=== PATIENT | female | born 1950 | race Caucasian/White ===

== ENCOUNTER → 2023-07-25 06:34 | Day surgery (SDC) | payer MEDICARE, SELFPAY | LOC: GI 06:34 | PROVIDERS: ATTENDING PHYSICIAN Internal Medicine Gastroenterology | DX: D12.0 Benign neoplasm of cecum (principal); D12.3 Benign neoplasm of transverse colon; D12.5 Benign neoplasm of sigmoid colon; K63.89 Other specified diseases of intestine; Z86.010 Personal history of colon polyps | CPT/HCPCS: 45385; 45380; 45381; 88305 ==

== ENCOUNTER → 2023-10-23 11:17 | Outpatient (REF) | payer MEDICARE, SELFPAY | LOC: RAD 11:17 | PROVIDERS: ATTENDING PHYSICIAN Internal Medicine Cardiovascular Disease; FAMILY PHYSICIAN Family Medicine | DX: I77.9 Disorder of arteries and arterioles, unspecified (principal); I65.21 Occlusion and stenosis of right carotid artery | CPT/HCPCS: 93880 ==

== ENCOUNTER → 2023-11-05 11:54 | Outpatient (REF) | payer MEDICARE, SELFPAY ==
[2023-11-05 14:46] LABS: Blood Urea Nitrogen 11 mg/dl (7-17); Calcium 9.6 mg/dl (8.4-10.2); Carbon Dioxide 30 mmol/L (22-30); Chloride 101 mmol/L (98-107); Glucose 102 mg/dl (70-99); Potassium 3.8 mmol/L (3.5-5.1); Sodium 140 mmol/L (135-145); eGFR > 60.00
== END ==
LOC: REG 11:54
PROVIDERS: ATTENDING PHYSICIAN Surgery Vascular Surgery; FAMILY PHYSICIAN Family Medicine
DX: I65.23 Occlusion and stenosis of bilateral carotid arteries (principal)
CPT/HCPCS: 36415; 80048

== ENCOUNTER → 2023-11-13 10:13 | Outpatient (REF) | payer MEDICARE, SELFPAY | LOC: RAD 10:13 | PROVIDERS: ATTENDING PHYSICIAN Surgery Vascular Surgery; FAMILY PHYSICIAN Family Medicine | DX: I65.23 Occlusion and stenosis of bilateral carotid arteries (principal) | CPT/HCPCS: 70496; 70498; Q9967 ==

== ENCOUNTER → 2023-11-15 12:32 | Outpatient (REF) | payer MEDICARE, SELFPAY | LOC: RAD 12:32 | PROVIDERS: ATTENDING PHYSICIAN Surgery Vascular Surgery; FAMILY PHYSICIAN Family Medicine | DX: Z13.6 Encounter for screening for cardiovascular disorders (principal) | CPT/HCPCS: 76770 ==

== ENCOUNTER → 2023-12-09 07:26 | Outpatient (REF) | payer MEDICARE, SELFPAY ==
[2023-12-09] MEDS: LEXISCAN 0.4 MG IV (09:25)
== END ==
LOC: RCS 07:26
PROVIDERS: ATTENDING PHYSICIAN Nuclear Medicine Nuclear Cardiology; FAMILY PHYSICIAN Family Medicine
DX: Z01.810 Encounter for preprocedural cardiovascular examination (principal); R06.02 Shortness of breath; I35.0 Nonrheumatic aortic (valve) stenosis
CPT/HCPCS: 78452; 93017; A9500; J2785

== ENCOUNTER 2023-12-12 06:15 | Inpatient (IN) | payer MEDICARE, SELFPAY ==
[2023-12-11 09:45] VITALS: BMI 35.4
[2023-12-11 10:54] LABS: % Basophils 0.6 % (0-2); % Eosinophils 0.7 % (0-6); % Immature Granulocytes 0.2 % (0-0.5); % Lymphocytes 15.5 % (20.5-51.1); Absolute Lymphocytes 0.8 10^3/uL (1.2-3.4); Absolute Monocytes 0.4 10^3/uL (0.1-0.6); Absolute Neutrophils 4.1 10^3/uL (1.4-6.5); Hematocrit 38.7 % (37.0-47.0); Mean Corp Hgb Conc. 33.6 g/dL (33.0-37.0); Mean Corpuscular Hgb 30.8 pg (27.0-31.0); Mean Corpuscular Volume 91.7 fL (81.0-99.0); Mean Platelet Volume 10.3 fL (7.4-10.4); Nucleated Red Blood Cells % 0 %; Platelet Count 188 10^3/uL (130-400); Red Blood Cell Count 4.22 10^6/uL (4.20-5.40); Red Cell Dist. Width 13.7 % (11.5-14.5); White Blood Cell Count 5.4 10^3/uL (4.8-10.8)
[2023-12-11 11:10] LABS: APTT 27.2 Sec (23.4-35.0); INR 0.99; PT 13.1 Sec (11.4-14.6)
[2023-12-11 11:47] LABS: Blood Urea Nitrogen 12 mg/dl (7-17); Calcium 9.6 mg/dl (8.4-10.2); Carbon Dioxide 27 mmol/L (22-30); Chloride 100 mmol/L (98-107); Estimated Creatinine Clearance 105 ml/min; Glucose 114 mg/dl (70-99); Sodium 138 mmol/L (135-145); eGFR > 60.00
[2023-12-12] VITALS (24 sets, daily range): BP systolic 97–192; BP diastolic 45–78; BMI 35.5
[2023-12-12] MEDS: BACTROBAN NASAL 1 GRAM NASAL (06:52)
[2023-12-12] MEDS: PERIDEX 0.12% ORAL RINSE 15 ML PO (06:53)
--- NOTE | 2023-12-12 07:07 | W.SUR.PREOP ---
Pre-Operative Surgical Note
-
I have examined this patient prior to the performance of the scheduled procedure.
The patient's condition is unchanged from the time of the current History and
Physical and the patient is able to undergo the scheduled procedure.
--- NOTE | 2023-12-12 09:08 | W.SUR.POST ---
Surgical Immediate Post Op
Note
Pre Op Diagnosis: Carotid stenosis
Post Op Diagnosis: Carotid stenosis
Procedure Performed: Left carotid endarterectomy with bovine pericardium patch angioplasty under EEG monitoring
Primary Surgeon: Cali Nguyen MD
leasing assistant: LUBNA Hernandez
Anesthesia: GETA
Estimated Blood Loss: 10 mL
Fluids: See anesthesia flowsheet
Drains/Shunts: N/A
Specimens/Cultures: Left carotid plaque
Doppler/Duplex/Angio (Y/N): Y
Complications: None
Operative Findings: Successful removal of left carotid plaque, upon waking from anesthesia patient can move all extremities spontaneously and to command, midline tongue
--- NOTE | 2023-12-12 09:09 | OR.RPT ---
Operative Report
Operative Report
PROCEDURE DATE: 12/12/2023
Preoperative diagnosis: Critical asymptomatic left carotid artery stenosis.
Postoperative diagnosis: Same
Procedure: Left carotid endarterectomy with bovine pericardial patch angioplasty and intraoperative EEG/SSEP monitoring.
Surgeon: Patrick
Ladler: SELINA Odell, required for all aspects of procedure including assistance with traction/countertraction, following of suture line, assistance with closure.
Complications: None
Anesthesia: General
Indications for procedure:
Severe left internal carotid artery stenosis, asymptomatic. Risk/benefits/alternatives of revascularization were all fully discussed. Patient understood and wished to proceed.
Description of procedure:
Patient was identified brought to the operating room placed on the table in supine position. After the adequate administration of anesthesia and perioperative antibiotics she was prepped and draped in the standard surgical fashion. A standard
preoperative timeout was undertaken and everybody was in agreement the plan. A standard longitudinal incision was made in the left neck that was carried through the skin subcutaneous tissue. Using the electrocautery dissection was carried through
the platysma muscle layer and then alongside the anterior medial border of the sternocleidomastoid muscle. Then using a combination of sharp dissection with the Metzenbaum scissors and electrocautery I dissected along the anterior medial border of
the internal jugular vein. I then deepened my retraction. The common carotid artery was identified and carefully dissected away from the surrounding structures take great care to avoid any injury to the structures. A vessel loop was passed around
it which was double looped, but not yet tightened. Note the vagus nerve was protected from harm's way. It was somewhat anterior and lateral, but was gently dissected off the common carotid artery laterally without grasping the nerve itself. I
then continued my dissection up the common carotid artery to the bulb staying only on the anterior surface of the carotid artery. The common facial vein branch was ligated between silk ties and then divided. Note, the common facial vein was noted
to be relatively cephalad (as noted on CT scan) overlying the internal carotid artery rather than the bifurcation. Then I carried the dissection up to the internal carotid artery and then to the distal internal carotid artery. I identified where
it was soft and carefully circumferentially dissected the internal carotid artery with minimal mobilization and passed a vessel loop around it. Note the hypoglossal nerve was visualized further cephalad and was preserved from harm's way. The
patient was given an appropriate dose of heparin 10,000 units. Next I dissected the anterior surface of the external carotid artery and superior thyroid branches. These were then carefully circumferentially dissected with minimal mobilization and
vessel loops passed around these which were double looped but not yet tightened. After 3 minutes of heparin circulation time and confirmation of optimization of the blood pressure with my anesthesiology colleagues, I clamped the distal internal
carotid artery where it was soft. There was no immediate EEG or SSEP changes. After 1 minute of test clamp time there was no changes noted. Therefore at this point, the vessel loops on the external carotid artery and superior thyroid branches
were tightened and the common carotid artery was clamped where it was soft proximally. An arteriotomy was made on the common carotid artery with an 11 blade and extended using a Reilly scissor. I extended the arteriotomy onto the mid to distal
internal carotid artery. There was mixed consistency plaque, with hard and calcified plaque more exteriorly and slightly softer more internally, but majority was somewhat firmer plaque. However, it resulted in a severe stenosis near occlusive of
the artery. A [place] was then used to endarterectomized the plaque. An endarterectomy plane was created, and the plaque was then endarterectomized. Distally I feathered the plaque out to a nice clean endpoint in the distal internal carotid artery.
Next I endarterectomized the intima back to normal intima in the common carotid artery, and the intima was cut flush there. I then grasped the plaque and everted plaque out of the origin of the external carotid artery. The plaque was then sent
off for specimen. The origin of the external carotid artery was carefully visualized and any fine debris were removed with fine forceps. Proximal and distal endpoints were then carefully inspected. Any fine debris was removed with fine forceps,
and the intima was noted to be nicely adherent proximally distally. Next any fine debris were removed throughout the endarterectomy bed with fine forceps. I then flushed heparinized saline. I was very satisfied. Then, I used a bovine pericardial
patch to sew a patch angioplasty with a running 6-0 Prolene suture. Prior to completing and tying down my suture line, I backbled sequentially each branch and reclamped each branch prior to unclamping the next branch. I then irrigated with
heparinized saline. Then I completed and tied down my suture line. We then restored flow in the common carotid and external carotid arteries. Finally, we released flow in the internal carotid artery. There was excellent pulsatile flow in all 3
vessels. There was an excellent Doppler signal in the internal carotid artery distal to the patch with a good normal low resistance Doppler signal. There was a good Doppler signal in the external carotid artery as well. 6-0 Prolene upurkl-so-ixwip
sutures were placed along any bleeding points along the suture line. Protamine was given to reverse the heparin. Hemostasis was completely achieved. We then irrigated and confirmed full hemostasis. We then closed in layers with 2-0 Vicryl layer
to reapproximate the sternocleidomastoid muscle, followed by 3-0 Vicryl platysma muscle running layer, followed by 4 Monocryl subcuticular stitch. Dermabond was applied. The patient tolerated procedure well. She awoke moving all extremities to
command with tongue in the midline.
[2023-12-12 10:14] LABS: Hemoglobin 11.4 g/dL (12.0-16.0); Mean Corp Hgb Conc. 33.5 g/dL (33.0-37.0); Mean Corpuscular Hgb 29.8 pg (27.0-31.0); Mean Corpuscular Volume 88.8 fL (81.0-99.0); Mean Platelet Volume 10.2 fL (7.4-10.4); Platelet Count 166 10^3/uL (130-400); Red Blood Cell Count 3.83 10^6/uL (4.20-5.40); Red Cell Dist. Width 13.7 % (11.5-14.5); White Blood Cell Count 8.6 10^3/uL (4.8-10.8)
[2023-12-12] MEDS: NSS 1000 IV ×2 (10:15→22:58)
[2023-12-12] MEDS: NEO-SYNEPHRINE 250 IV (10:16)
[2023-12-12 10:36] LABS: INR 1.05; PT 13.7 Sec (11.4-14.6)
[2023-12-12 10:37] LABS: APTT 27.8 Sec (23.4-35.0)
--- NOTE | 2023-12-12 11:00 | PTCARENOTE ---
Received pt. from PACU into rm [id number]. Pt. AAOx3, c/o of slight discomfort at surgical site; ice pack applied, denies pain meds. Neuro checks completed per orders- see flow sheet. SB w 1st degree AVB. SpO2 95% on 2LNC. +BS, abd soft/round/obese.
C/O int nausea, tolerating ice chips. Cont b/b. Bedrest POD 0. L neck incision approximated/closed w surgical glue. NSS @ 80mL/hr infusing via #20 R AC. # 20 L AC patent, dressing c/d/i. R rad A-line transduced, monitored, and calibrated; all
ports patent and secured; correlated w cuff pressures. SBP's elevated into 150's, brea gtt off and SBP's maintaining w in goal range. Family @ bedside, updated. Pt. instructed on how to report care concerns and call nugent w in reach.
--- NOTE | 2023-12-12 11:13 | CON.INTV ---
Consultation
Consultation Request
Date/Time Consultation Requested: 12/12/2023-11:15 AM
Date/Time Consultation Performed: 12/12/2023-11:15 AM
Requesting Provider: Vascular surgery
Performing Provider: Dr. Jimenez
Reason for Consultation: Postoperative critical care management
Medical History
-
Chief Complaint: Carotid stenosis
History of Present Illness:
72-year-old female former smoker who quit in 2012, depression, retinal artery branch occlusion, hypertension and hyperlipidemia with prior right-sided carotid stent placement in 2015 who has critical asymptomatic left carotid artery stenosis and
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 Patient was seen in the surgical intensive care unit postprocedure and denies shortness of breath, chest pain, chest tightness, productive cough,
abdominal pain, nausea, weakness that is focal, or lower extremity edema.
Past Medical History
Past Medical History: None (Hypertension. Hyperlipidemia. Former smoker quit 2012. Depression. Retinal artery branch occlusion left eye. Aortic stenosis. Right carotid stent 2015.)
Social History
Tobacco: Former Smoker (Quit 2013-occasional vaping)
Drug: None
Living: With Family
Occupational Exposures: No known asbestos exposure
Environmental Exposures: No known tuberculosis exposure
Family History
Family History: Other (Father-CAD. Mother-melanoma. Brother-lung cancer)
Allergies / Home Medications
Allergies
Allergy/AdvReac Type Severity Reaction Status Date / Time
poison marylin extract Allergy Rash Verified 12/04/23 15:18
Home Medications
�Medication �Instructions �Recorded �Confirmed �Last Taken �Type
hydrochlorothiazide 25 mg tablet 25 mg PO DAILY 03/01/17 12/12/23 12/11/23 09:00 History
metoprolol succinate 50 mg 50 mg PO DAILY 03/01/17 12/12/23 12/12/23 05:00 History
tablet,extended release 24 hr
paroxetine HCl 20 mg tablet 20 mg PO DAILY 03/01/17 12/12/23 12/11/23 09:00 History
aspirin 81 mg tablet,delayed 81 mg PO DAILY ##0 03/03/17 12/12/23 12/12/23 05:00 Rx
release
alprazolam 0.5 mg tablet 1 mg PO HS PRN insomnia 12/04/23 12/12/23 12/10/23 20:00 History
losartan 25 mg tablet 25 mg PO DAILY 12/04/23 12/12/23 12/12/23 05:00 History
rosuvastatin 40 mg tablet 40 mg PO DAILY 12/04/23 12/12/23 12/11/23 09:00 History
Review of Systems
-
Unable to Obtain full review of systems at this time due to: Other (Per HPI)
Vitals / Labs / Diagnostic Testing
Vital Signs
Temp Pulse Resp BP Pulse Ox
98.1 F 48 11 110/50 96
12/12/23 10:51 12/12/23 10:30 12/12/23 10:30 12/12/23 10:23 12/12/23 10:30
Lab Data
12/12/23 09:31
Laboratory Results
12/11/23 12/12/23
09:55 09:31
PT 13.1 13.7
INR 0.99 1.05
APTT 27.2 27.8
Diagnostic Testing:
Physical Exam
-
Exam:
Well-nourished and well-developed in no apparent distress
HEENT-atraumatic, normocephalic, left carotid bandages not removed
Neck-supple, no JVD, no bruit
Heart-regular rate and rhythm-no murmurs, rubs or gallops
Chest-clear to auscultation, no wheezes, crackles
Back-no tenderness
Abdomen-soft, nontender, nondistended, no hepatosplenomegaly
Extremities-no cyanosis, clubbing, edema and good peripheral pulses
Integument-intact, no rashes, lesions or ecchymosis
Neurology-alert and oriented, nonfocal motor and sensory exam
Assessment
-
72-year-old female former smoker who quit in 2012, depression, retinal artery branch occlusion, hypertension and hyperlipidemia with prior right-sided carotid stent placement in 2015 who has critical asymptomatic left carotid artery stenosis and
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
Critical asymptomatic left carotid artery stenosis
Status post left CEA with bovine pericardial patch angioplasty-Dr. Nguyen-12/12/2023
Mild nvliez-pdqjhdndlu-piotbtkvcm 11.4
Mild hyperglycemia
Snore-unrefreshed, daytime somnolence, family history of VZW-qgugmjsj-otzjqlw CANDICE
Conditions present prior to admission:
Hypertension.
Hyperlipidemia.
Former smoker quit 2012.
Depression.
Retinal artery branch occlusion left eye.
Aortic stenosis.
Colon polyps
Right carotid stent 2015.
Obstructive sleep apnea suspected
Family history lung cancer
Plan
Postoperative surgical intensive care unit monitoring
Supplemental oxygen as needed
Incentive spirometry
Aspiration precautions
Neuro and vascular checks per protocol
Vascular surgery following-correspondence and operative notes reviewed
Monitor hemoglobin
Transfuse if needed
Monitor blood sugar
Insulin supplementation if needed
DVT prophylaxis
Early nutrition
Early mobilization
Vaping cessation counseling ongoing
Outpatient pulmonary/sleep nwduhz-xy-timovqd smoking cessation, vaping cessation counseling, PFT and yearly low-dose lung cancer screening CT if eligible-would benefit from home polysomnogram-snores, unrefreshed, daytime somnolence
Critical care statement: A total of 50 minutes of critical care time was provided for this patient today. This includes management of unstable vital signs, evaluation of the patient at bedside, reviewing the patient's pertinent medical records
including radiographs, microbiology, laboratory evaluations, and discussion with primary team, consultants, pharmacy, nutrition, physical therapy, case management, charge nurse, critical care nursing, and respiratory therapy.
Diagnostic data:
Chest x-ray 10/04/2015-mild left lower lobe subsegmental atelectasis
Chest x-ray 12/07/2023-NAD
Chest x-ray 12/12/2023-NAD
Echocardiogram 03/08/2023-EF 69%, mild aortic stenosis, ADRIANA 1.5 cm
Stress test Lexiscan 12/09/2023-moderate risk study, EF 72%
Data Reviewed
-
EKG: Report reviewed by me
Radiology: Report reviewed by me
Medical Tests (Nuc Med, Echo etc): Report reviewed by me
Labs: Labs reviewed by me
Old Records: Reviewed
Critical Care Time (in minutes): 50
[2023-12-12 12:12] LABS: Blood Urea Nitrogen 14 mg/dl (7-17); Carbon Dioxide 24 mmol/L (22-30); Chloride 106 mmol/L (98-107); Estimated Creatinine Clearance 105 ml/min; Glucose 141 mg/dl (70-99); Magnesium 1.8 mg/dl (1.6-2.3); Potassium 3.8 mmol/L (3.5-5.1); Sodium 139 mmol/L (135-145); eGFR > 60.00
--- NOTE | 2023-12-12 15:10 | PTCARENOTE ---
Addendum entered by Rachell Santoyo RN 12/12/23 18:58:
1500- left neck site shaylee. c/d/i.
Original Note:
pt received from previous rn- aox4, on 2LNC, sinus mari on monitor. able to make needs known, denies pain or discomfort. neuro assessment wnl. sinus mari on monitor. right radial gabe intact zeroed and functioning. ivf continue as per order. pt
assisted on bedpan. aware of plan of care- verbalized understanding. all safety precautions in place, call nugent within reach
[2023-12-12] MEDS: HEPARIN 5000 UNITS SC (19:58)
--- NOTE | 2023-12-12 20:45 | PTCARENOTE ---
Received patient AAOx3, following commands, denying pain. PERRLA, 3 mm. Strengths normal in each extremity. Sinus mari/normal sinus 50s-60s. Tang turned on to maintain systolic BP 100-160, titrating per order. Normothermic. On 2 liters nasal
cannula, saturating 96%. Lung sounds diminished in the bases. Abdomen round, obese, soft. Positive bowel sounds, bedpan to void. Left neck endarterectomy site approximated, no swelling or drainage. Surgical adhesive present. NSS at 80 ml/hr ongoing.
Right radial gabe zeroed, leveled, and flushed. PIVs patent, WNL. Call nugent within reach.
[2023-12-12] MEDS: MYLICON 80 MG PO (20:53)
[2023-12-13] VITALS (12 sets, daily range): BP systolic 71–165; BP diastolic 59–87; BMI 36.2
--- NOTE | 2023-12-13 | PTCARENOTE ---
Patient assessment unchanged from previous, call nugent within reach.
--- NOTE | 2023-12-13 02:30 | PTCARENOTE ---
Tang off, otherwise patient assessment unchanged from previous.
[2023-12-13] MEDS: TOPROL XL 50 MG PO (06:05)
[2023-12-13] MEDS: XANAX 0.25 MG PO (06:22)
[2023-12-13] MEDS: NITROGLYCERIN PREMIX 250 IV (06:23)
[2023-12-13 06:25] LABS: Hematocrit 33.8 % (37.0-47.0); Hemoglobin 11.4 g/dL (12.0-16.0); Mean Corp Hgb Conc. 33.7 g/dL (33.0-37.0); Mean Corpuscular Hgb 30.5 pg (27.0-31.0); Mean Corpuscular Volume 90.4 fL (81.0-99.0); Mean Platelet Volume 9.8 fL (7.4-10.4); Platelet Count 160 10^3/uL (130-400); Red Blood Cell Count 3.74 10^6/uL (4.20-5.40); Red Cell Dist. Width 13.9 % (11.5-14.5); White Blood Cell Count 7.4 10^3/uL (4.8-10.8)
[2023-12-13 06:31] LABS: INR 1.06; PT 13.9 Sec (11.4-14.6)
[2023-12-13 06:32] LABS: APTT 24.8 Sec (23.4-35.0)
--- NOTE | 2023-12-13 06:38 | PTCARENOTE ---
BP in the 170s-180, TOOLMAKER notified. Metoprolol dose given early, 0.25 mg of ativan given for anxiety, and nitro drip started per protocol. Patient reports feeling less anxious after ativan, states 'I have bad white coat syndrome'. Titrating nitro to
keep SBP <160.
[2023-12-13 06:47] LABS: Blood Urea Nitrogen 13 mg/dl (7-17); Calcium 9.1 mg/dl (8.4-10.2); Carbon Dioxide 23 mmol/L (22-30); Chloride 109 mmol/L (98-107); Estimated Creatinine Clearance 106 ml/min; Glucose 126 mg/dl (70-99); Potassium 3.9 mmol/L (3.5-5.1); Sodium 137 mmol/L (135-145); eGFR > 60.00
--- NOTE | 2023-12-13 07:09 | PTCARENOTE ---
dr. kaur notified of pts status and bp. no new orders.
--- NOTE | 2023-12-13 07:24 | W.PN.INTV ---
Today's Communication / Plan
Recommendations
Wean oxygen
Increase activity
deline
Wean nitro
Stable for transfer out of ICU-call pulmonary if respiratory issues arise
Assessment
-
72-year-old female former smoker who quit in 2012, depression, retinal artery branch occlusion, hypertension and hyperlipidemia with prior right-sided carotid stent placement in 2015 who has critical asymptomatic left carotid artery stenosis and
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
Critical asymptomatic left carotid artery stenosis
Status post left CEA with bovine pericardial patch angioplasty-Dr. Nguyen-12/12/2023
Mild epqfaj-myiyblvsqj-gqvlucitac 11.4
Mild hyperglycemia
Snore-unrefreshed, daytime somnolence, family history of LAO-zfwtcbrp-gtefvbz CANDICE
Conditions present prior to admission:
Hypertension.
Hyperlipidemia.
Former smoker quit 2012.
Depression.
Retinal artery branch occlusion left eye.
Aortic stenosis.
Colon polyps
Right carotid stent 2015.
Obstructive sleep apnea suspected
Family history lung cancer
Plan
Hemodynamically and neurovascularly intact
Wean supplemental oxygen-marginal but improves with deep inspiration
Incentive spirometry encouraged
Aspiration precautions
Monitor hemoglobin
Transfuse if needed
Monitor blood sugars
Insulin supplementation if needed
Neuro and vascular checks per protocol also continue
Wean off nitro infusion
Discontinue IV fluids
Continue antiplatelet therapy and statins
Vascular surgery closely-correspondence reviewed
DVT prophylaxis recommended
Nutrition
Increase activity/physical therapy
Vaping cessation counseling ongoing
Patient is neurovascularly intact and hemodynamically stable-could be transferred out of ICU-call pulmonary if respiratory issues arise
Outpatient pulmonary/sleep sldpbf-dh-ovzyvia smoking cessation, vaping cessation counseling, PFT and yearly low-dose lung cancer screening CT if eligible-would benefit from home polysomnogram-snores, unrefreshed, daytime somnolence
Reviewed the patient's pertinent medical records including radiographs, microbiology, laboratory evaluations, and discussion with primary team, consultants, pharmacy, nutrition, physical therapy, case management, charge nurse, critical care
nursing, and respiratory therapy.
Diagnostic data:
Chest x-ray 10/04/2015-mild left lower lobe subsegmental atelectasis
Chest x-ray 12/07/2023-NAD
Chest x-ray 12/12/2023-NAD
Echocardiogram 03/08/2023-EF 69%, mild aortic stenosis, ADRIANA 1.5 cm
Stress test Lexiscan 12/09/2023-moderate risk study, EF 72%
Subjective Dataa
Subjective Data
Date of Service:
Date of Service: December 13, 2023
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
Subjective:
States that she is anxious, however, no complaints of shortness of breath, chest pain, chest congestion, productive cough, abdominal pain
Review of Systems
General: Other (Per HPI)
Objective Data
Data Reviewed
Vital Signs / I&O / Oxygen:
Vital Signs
Temp Pulse Resp BP Pulse Ox
98.3 F 62 12 173/65 97
12/13/23 07:03 12/13/23 06:05 12/13/23 06:00 12/13/23 06:05 12/13/23 06:00
Intake and Output
12/12/23 12/13/23 12/14/23
06:59 06:59 06:59
Intake Total 1765 / 1765
Balance 1765 / 1765
SaO2 97
Nasal Cannula flow liters per 2
minute
Physical Exam
General: Respiratory Distress (n) and Comfortable
HEENT: Normocephalic, Anicteric and Moist Mucous Membranes
Cardiovascular: Regular Rhythm and Murmur (n)
Respiratory: Clear (Diminished breath sounds), Wheeze (n), Crackles (Rare basilar), Rhonchi (n), Non-Labored Respirations, Accessory Resp Muscle Use (n) and Stridor (n)
GI: Soft, Non Distended and Non Tender
Neurology: Awake, Alert and No Motor Deficits
Skin: Warm, Good Color, Cyanosis (n), Jaundice (n) and Rash (n)
Labs/Micro/Reports
Lab Data
12/13/23 06:13
12/13/23 06:13
Laboratory Results
12/12/23 12/13/23
09:31 06:13
PT 13.7 13.9
INR 1.05 1.06
APTT 27.8 24.8
Microbiology
12/11/23 09:55 Nose MRSA Screen - Final
No Methicillin Resistant Staphylococcus aureus isolated.
--- NOTE | 2023-12-13 07:30 | PTCARENOTE ---
Addendum entered by Rachell Santoyo RN 12/13/23 09:31:
sinus mari with 1st degree av block on monitor
Original Note:
pt received from previous rn- aox4, sinus mari on monitor, placed on room air. pt anxious complaining of 'white coat syndrome' blood pressure on gabe increasing while explaining anxiety. nitro gtt infusing to maintain systolic 100-160. ivf
continue. neuro wnl. right radial gabe zeroed and functioning, all safety precautions in place. call nugent within reach. pt educated about plan of care- verbalized understanding. left neck site shaylee, c/d/i, denies pain/
[2023-12-13] MEDS: ASPIR LOW (ENTERIC COATED) 81 MG PO (07:47)
[2023-12-13] MEDS: COZAAR 25 MG PO (07:47)
[2023-12-13] MEDS: ORETIC 25 MG PO (07:48)
[2023-12-13] MEDS: PAXIL 20 MG PO (07:48)
[2023-12-13] MEDS: CRESTOR 40 MG PO (07:48)
[2023-12-13] MEDS: HEPARIN 5000 UNITS SC (07:48)
--- NOTE | 2023-12-13 08:57 | W.PN.VS ---
Today's Communication / Plan
-
See below
Assessment/Plan
-
Assessment: 72 year old female POD #1 Left CEA
Plan:
Dc IV fluids
Will administer home PO antihypertensive medications
Wean off nitro infusion and then dc arterial line
OOB to chair with progression to ambulation as tolerated
Continue antiplatelet medication and statin
Possible discharge later today
Subjective Data
-
Date of Service: December 13, 2023
Patient seen and examined at bedside, offers no complaints. Denies nausea, vomiting, fever, chills, headache, and vision changes/loss. Reports eagerness for discharge to home.
Objective Data
-
Vital Signs
Temp Pulse Resp BP Pulse Ox
98.3 F 62 12 161/57 92
12/13/23 07:03 12/13/23 06:05 12/13/23 06:00 12/13/23 07:48 12/13/23 07:29
Intake and Output
12/12/23 12/13/23 12/14/23
06:59 06:59 06:59
Intake Total 176 / 1848 163 / 163
Balance 176 / 1848 163 / 163
Intake:
IV fluids (Total) 1765 / 1848 163 / 163
NSS 1750 / 1830 160 / 160
brea 15 / 15
nitro 3 / 3
Other:
Number of approximated MODERATE 1
amounts of urine
Number of approximated LARGE 1
amounts of urine
Lab Results
12/13/23 06:13
12/13/23 06:13
Calcium 9.1 mg/dl (8.4-10.2) 12/13/23 06:13
Magnesium 1.8 mg/dl (1.6-2.3) 12/12/23 09:31
Physical Exam
-
AAOx3, NAD
Left neck site CDI, no evidence of hematoma, all compartments soft, face symmetrical, tongue midline
No tachycardia
No dyspnea on room air
BL UE and LE with equal strength
--- NOTE | 2023-12-13 09:04 | PTCARENOTE ---
vascular pa margarito and karely- ordered to take out gabe, d/c fluids and ambulate. nitro gtt weaned off. bp stable. right radial gabe d/c pressure dressing applied, oob to bathroom, ambulating without difficulty. pt oob to chair.
--- NOTE | 2023-12-13 09:56 | CM ---
CM following re: discharge planning.
Reviewed pt's chart, met with pt and pt's son Marty at bedside.
Pt is a 72 year old female, admitted with primary dx of POD #1 Left CEA. per Vascular surgery, pt will be discharged home today later this afternoon. Pt is aware, expressed her agreement with discharge and she stated her son will transport home. IMM
reviewed, placed on chart, pt has a copy.
Pt reports she lives with son Marty in an apartment in a [address], has 2 supportive children. 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 NO DME, VN or SNF history.
PCP: Jaime May
Pharmacy: [facility]
D/C plan: home no needs. Son to transport.
--- NOTE | 2023-12-13 11:21 | W.DS.TRANS ---
DC Summary - [employer]
-
Discharge Instructions:
Discharge Diagnosis/Procedures Left carotid endarterectomy
Diet As tolerated
Activity No strenuous activity
Driving Restrictions Not until seen by your Dr
Bathing Restrictions OK to Shower
Instructions:
Stand-Alone Forms: DC Instr - Vascular OR
Changes to Home Medications: No
Discharge Medications:
DC Medications w/original date entered in docplanner
hydrochlorothiazide 25 mg tablet 25 mg PO DAILY Blood Pressure 03/01/17
metoprolol succinate 50 mg tablet,extended release 24 hr 50 mg PO DAILY Blood Pressure 03/01/17
paroxetine HCl 20 mg tablet 20 mg PO DAILY Mental Health/Anxiety 03/01/17
aspirin 81 mg tablet,delayed release 81 mg PO DAILY ##0 03/03/17
alprazolam 0.5 mg tablet 1 mg PO HS PRN insomnia 12/04/23
losartan 25 mg tablet 25 mg PO DAILY Blood Pressure 12/04/23
rosuvastatin 40 mg tablet 40 mg PO DAILY High Cholesterol 12/04/23
Home Medication Changes
Pending Results: No
--- NOTE | 2023-12-13 12:15 | PTCARENOTE ---
bilateral ints removed, pressure dressings applied. discharge instructions given- pt verbalized understanding. pt wheelchaired down to son.
== END 2023-12-13 12:26 | disposition home or self-care (01) | DRG 38 ==
LOC: ICU 06:15
PROVIDERS: Nurse Practitioner; ADMITTING PHYSICIAN Surgery Vascular Surgery; CONSULT PHYSICIAN Internal Medicine Critical Care Medicine; FAMILY PHYSICIAN Family Medicine
PROC: 03UL0KZ Supplement Left Internal Carotid Artery with Nonautologous Tissue Substitute, Open Approach (ICD-10-PCS; 2023-12-12)
PROC: 03CL0ZZ Extirpation of Matter from Left Internal Carotid Artery, Open Approach (ICD-10-PCS; 2023-12-12)
DX: I65.22 Occlusion and stenosis of left carotid artery (principal); H34.232 Retinal artery branch occlusion, left eye; I35.0 Nonrheumatic aortic (valve) stenosis; I10 Essential (primary) hypertension; F32.A Depression, unspecified; Z95.828 Presence of other vascular implants and grafts; E78.00 Pure hypercholesterolemia, unspecified; F17.290 Nicotine dependence, other tobacco product, uncomplicated; R06.83 Snoring; R40.0 Somnolence; D64.9 Anemia, unspecified; R73.9 Hyperglycemia, unspecified; Z79.82 Long term (current) use of aspirin; Z79.899 Other long term (current) drug therapy; Z82.49 Family history of ischemic heart disease and other diseases of the circulatory system; Z88.8 Allergy status to other drugs, medicaments and biological substances
CPT/HCPCS: 88304; 88311; 35301; 36415; 71045; 71046; 78452; 80048; 83735; 85025; 85027; 85610; 85730; 86850; 86900; 86901; 87070; 93005; 93017; 95938; 95941; 95955; A9500; J2785

== ENCOUNTER → 2024-01-27 13:13 | Outpatient (REF) | payer MEDICARE, SELFPAY | LOC: RAD 13:13 | PROVIDERS: ATTENDING PHYSICIAN Physician Assistant; FAMILY PHYSICIAN Family Medicine | DX: I65.23 Occlusion and stenosis of bilateral carotid arteries (principal) | CPT/HCPCS: 93880 ==

== ENCOUNTER → 2024-08-13 10:13 | Outpatient (REF) | payer MEDICARE, SELFPAY | LOC: DHVS 10:13 | PROVIDERS: ATTENDING PHYSICIAN Surgery Vascular Surgery; FAMILY PHYSICIAN Family Medicine | DX: I65.23 Occlusion and stenosis of bilateral carotid arteries (principal) | CPT/HCPCS: 93880 ==

== ENCOUNTER → 2025-02-16 10:02 | Outpatient (REF) | payer MEDICARE, SELFPAY | LOC: RAD 10:02 | PROVIDERS: ATTENDING PHYSICIAN Physician Assistant; FAMILY PHYSICIAN Family Medicine | DX: I65.23 Occlusion and stenosis of bilateral carotid arteries (principal) | CPT/HCPCS: 93880 ==